=== PATIENT | female | born 1945 | race Caucasian/White ===

== ENCOUNTER 2016-11-12 15:08 | Inpatient (IN) | payer OTHER ==
[2016-11-12] VITALS (13 sets, daily range): BP systolic 88–154; BP diastolic 66–115
[~2016-11-12] VITALS: Ht 162.6 cm; Wt 61.7 kg
[~2016-11-12 15:08] MED LIST: ALEN70TA45 PO; ASPI81TA2 PO; ATOR20TA PO; BUDE10.2 IH; CARV6.252 PO; FURO-144 PO; GUAI600T PO; Ipratropium Bromide NEB; LEVA0.6320 IH; LEVO750T21 PO; LISI10TA5 PO; PANT40TA2 PO; PRED10TA PO; PRED20TA GT; PRED50TA PO; SERT100T PO
--- NOTE | 2016-11-12 15:08 | NUR ---
BIB [facility] 77 FROM HOME, WORSENING SOB SINCE THIS MORNING, ALBUTEROL HHN EN ROUTE. PT DYSPNEIC AT REST. RT AND MD AT BEDSIDE. PLACED ON MONITOR. GOWNED PT. PT HAS LAC #18 IV ACCESS OUTBOARD MOTOR MECHANIC.
[2016-11-12] MEDS ORDERED: ALBUTEROL FS 2.5 MG/3 ML VIAL.NEB ONE (15:09)
[2016-11-12] MEDS ORDERED: Magnesium 1GM/D5W 100ML PREMIX 200 ML IV ONE ×2 (15:10→15:19)
--- NOTE | 2016-11-12 15:15 | NUR ---
EKG IN PROGRESS
--- NOTE | 2016-11-12 15:15 | NUR ---
LHAND #20 IV ACCESS. BLOOD SAMPLE COLLECTED SENT TO LAB. PT HAS LAC #18 IV ACCESS FLOOR COVERING PRINTER
[2016-11-12] MEDS ORDERED: IV SET PRIMARY PUMP SET 1 EA INFUS.SET MC ONE ×2 (15:19→19:28)
--- NOTE | 2016-11-12 15:23 | NUR ---
CALLED NURSING MAKING LINE WORKER FOR ICU BED
[2016-11-12] MEDS ORDERED: methylPREDNISolone SOD SUCC 125 MG/2ML VIAL ONE (15:24)
[2016-11-12] MEDS ORDERED: IV NS 0.9% 500 ML IV ONE (15:30)
[2016-11-12] MEDS ORDERED: methylPREDNISolone SOD SUCC 125 MG/2ML VIAL IV ONE (15:30)
[2016-11-12] MEDS ORDERED: ALBUTEROL FS 2.5 MG/3 ML VIAL.NEB CONTNEB ONE (15:30)
[2016-11-12] MEDS ORDERED: IPRATROPIUM NEB FS 0.5 MG/2.5 ML AMPUL.NEB NEB ONE (15:30)
--- NOTE | 2016-11-12 15:39 | NUR ---
DIESEL FLEET MECHANIC AT BEDSIDE
[2016-11-12 15:40] LABS: BASOPHILS % (AUTO) 0.2 % (0.0-2.0); EOSINOPHILS # (AUTO) 0.1 /CMM (0.0-0.7); EOSINOPHILS % (AUTO) 0.8 % (0.0-6.0); HEMATOCRIT 43 % (33-45); HEMOGLOBIN 14.5 g/dL (11.5-14.8); LYMPHOCYTES # (AUTO) 0.9 /CMM (0.8-4.8); LYMPHOCYTES % (AUTO) 6.6 % (20.0-44.0); MEAN CORPUSCULAR HEMOGLOBIN 29 PG (26.0-33.0); MEAN CORPUSCULAR HGB CONC 34 g/dl (31.0-36.0); MEAN CORPUSCULAR VOLUME 86 fL (82-100); MONOCYTES # (AUTO) 0.5 /CMM (0.1-1.30); MONOCYTES % (AUTO) 3.8 % (2.0-12.0); NEUTROPHILS # (AUTO) 11.6 /CMM (1.8-8.9); NEUTROPHILS % (AUTO) 88.6 % (43.0-81.0); PLATELET COUNT (AUTO) 228 /CMM (150-450); RDW COEFFICIENT OF VARIATION 13.9 (11.5-15.0); WHITE BLOOD COUNT (AUTO) 13.1 K/uL (4.3-11.0)
[2016-11-12 15:48] LABS: CALCIUM, SERUM 9.2 mg/dL (8.5-10.1); CREATININE 0.6 mg/dL (0.6-1.3); POTASSIUM 4.3 mmol/L (3.5-5.1)
[2016-11-12 15:55] LABS: TROPONIN I 0.022 ng/mL (0.00-0.056)
--- NOTE | 2016-11-12 15:55 | NUR ---
BIPAP SETING 15 IPAP 5 EPAP FIO2 40% RATE 12
[2016-11-12 16:03] LABS: ALBUMIN 3.5 g/dL (3.4-5.0); BILIRUBIN,DIRECT 0.1 mg/dL (0.0-0.2); BILIRUBIN,TOTAL 0.3 mg/dL (0.2-1.0); TOTAL PROTEIN, SERUM 7.3 g/dL (6.4-8.2)
[2016-11-12 16:07] LABS: ABG BASE EXCESS -1.7 mmol/L; ABG PCO2 46.8 mmHg (35.0-45.0); ABG PH 7.336 (7.350-7.450); ABG PO2 59.6 mmHg (75.0-100.0); AaDO2 171.8 mmHg; COHb 1.3 % (0.5-1.5); MetHb 0.6 % (0.0-1.5); O2Hb 87.3 % (94.0-97.0); SITE, ABG Left Radial; VENT MODE, BG ST 15/5 RR12 40%
--- NOTE | 2016-11-12 16:15 | NUR ---
ICU 258
[2016-11-12] MEDS ORDERED: FUROSEMIDE 40 MG/4 ML VIAL IV ONE (16:30)
[2016-11-12] MEDS ORDERED: ASPIRIN 325 MG TABLET PO ONE (17:00)
[2016-11-12] MEDS ORDERED: FUROSEMIDE 40 MG/4 ML VIAL ONE (17:08)
[2016-11-12] MEDS ORDERED: ASPIRIN 325 MG TABLET ONE (17:08)
--- NOTE | 2016-11-12 17:24 | NUR ---
GAVE REPORT TO KAYLA LPN HOME [facility] DX RESP FAILURE DR HERNADEZ ADMITTING. TRANSFER VIA ACLS PROTOCOL.
--- NOTE | 2016-11-12 17:30 | NUR ---
ICU/RN: INITIAL NOTES,AM RECEIVED PT FROM ER VIA GURNEY, PT ALERT, AWAKE, FOLLOWING COMMANDS. ABLE TO AMBULATE FROM GURNEY TO BED. PT PLACED ON BIPAP WITH ORDERED SETTINGS PER MD. SOB NOTED, HOWEVER, MAINTAINING 02 SAT >92%. PT ON TELE, SINUS TACHYCARDIA. PT CONTINENT, ABLE TO USE BEDPAN. PIV PATENT AND INTACT, NO S/S OF INFECTION OR INFILTRATION NOTED. ALL NEEDS WILL BE MET, SAFETY MEASURES TAKEN, BED IN LOW POSITION, SIDE RAILS UP, CALL LIGHT WITHIN REACH.
[2016-11-12] MEDS ORDERED: MAGNESIUM HYDROXIDE 30 ML UDC PO PRN (18:00)
[2016-11-12] MEDS ORDERED: ACETAMINOPHEN 325 MG TABLET PO PRN (18:00)
[2016-11-12] MEDS ORDERED: ONDANSETRON HCL/PF 4 MG/2 ML VIAL IVP PRN (18:00)
[2016-11-12] MEDS ORDERED: MAG HYDROX/AL HYDROX/SIMETH 30 ML UDC PO PRN (18:00)
[2016-11-12] MEDS ORDERED: Z GUARD REMEDY 2 OZ OINT TP PRN (18:00)
[2016-11-12] MEDS ORDERED: IPRATROPIUM NEB FS 0.5 MG/2.5 ML AMPUL.NEB NEB PRN (18:00)
[2016-11-12] MEDS ORDERED: MORPHINE SULFATE INJ 2 MG/ML DISP.SYRIN IV PRN (18:00)
[2016-11-12] MEDS ORDERED: ALBUTEROL FS 2.5 MG/0.5 ML VIAL.NEB NEB PRN (18:00)
[2016-11-12] MEDS ORDERED: HYDROCODONE/APAP 5/325MG 1 EACH TABLET PO PRN (18:00)
--- NOTE | 2016-11-12 18:16 | NUR ---
ICU/RN: PT REFUSING BIPAP, PLACED ON NASAL CANULA 2 LITERS, TOLERATING WELL, MAINTAINING 02 SAT >92%
--- NOTE | 2016-11-12 18:37 | NUR ---
ICU/RN: PT PLACED ON BIPAP AGAIN, SETTINGS ORDERED BY MD, TOLERATING WELL, WILL CONTINUE TO MONITOR
[2016-11-12] MEDS: LEVOFLOXACIN 500 MG /D5W 100ML 500 MG in PREMIX 1 EA IV SCH (19:32)
[2016-11-12] MEDS: ALBUTEROL FS 2.5 MG/0.5 ML VIAL.NEB NEB SCH (20:18)
[2016-11-12] MEDS: IPRATROPIUM NEB FS 0.5 MG/2.5 ML AMPUL.NEB NEB SCH (20:18)
--- NOTE | 2016-11-12 21:00 | NUR ---
ICU/TRADE CLERK SPOKE WITH ARLIN FRANCISCO [phone]. SHE WOULD LIKE TO SPEAK WITH PRIMARY MD. AND WOULD LIKE PT PLACED IN A SNF/REHAB WHEN DISCHARGED. WILL ENDORSE TO AM SHIFT.
[2016-11-12] MEDS: ATORVASTATIN 10 MG TABLET PO SCH (21:27)
[2016-11-12] MEDS: ENOXAPARIN SODIUM 40 MG/0.4 ML DISP.SYRIN SQ SCH (21:27)
[2016-11-13] VITALS (41 sets, daily range): BP systolic 87–140; BP diastolic 51–99
[2016-11-13] MEDS: IPRATROPIUM NEB FS 0.5 MG/2.5 ML AMPUL.NEB NEB SCH ×6 (02:01→23:56)
[2016-11-13] MEDS: ALBUTEROL FS 2.5 MG/0.5 ML VIAL.NEB NEB SCH ×6 (02:01→23:56)
[2016-11-13 05:20] LABS: EOSINOPHILS % (AUTO) 0.1 % (0.0-6.0); HEMATOCRIT 43 % (33-45); HEMOGLOBIN 14.1 g/dL (11.5-14.8); LYMPHOCYTES # (AUTO) 0.4 /CMM (0.8-4.8); LYMPHOCYTES % (AUTO) 4.8 % (20.0-44.0); MEAN CORPUSCULAR HEMOGLOBIN 29 PG (26.0-33.0); MEAN CORPUSCULAR HGB CONC 33 g/dl (31.0-36.0); MEAN CORPUSCULAR VOLUME 87 fL (82-100); MONOCYTES # (AUTO) 0.4 /CMM (0.1-1.30); MONOCYTES % (AUTO) 4.9 % (2.0-12.0); NEUTROPHILS # (AUTO) 6.8 /CMM (1.8-8.9); NEUTROPHILS % (AUTO) 90.2 % (43.0-81.0); PLATELET COUNT (AUTO) 231 /CMM (150-450); RDW COEFFICIENT OF VARIATION 14.6 (11.5-15.0); RED BLOOD CELL COUNT(AUTO) 4.91 MIL/uL (4.0-5.2); WHITE BLOOD COUNT (AUTO) 7.6 K/uL (4.3-11.0)
[2016-11-13 05:34] LABS: ALBUMIN 3.1 g/dL (3.4-5.0); BILIRUBIN,TOTAL 0.3 mg/dL (0.2-1.0); CALCIUM, SERUM 8.9 mg/dL (8.5-10.1); CREATININE 0.6 mg/dL (0.6-1.3); MAGNESIUM 2.3 mg/dL (1.8-2.4); PHOSPHORUS 4.3 mg/dL (2.5-4.9); POTASSIUM 4.7 mmol/L (3.5-5.1); TOTAL PROTEIN, SERUM 7.1 g/dL (6.4-8.2)
--- NOTE | 2016-11-13 07:51 | NUR ---
ICU/RN INITIAL NOTES,AM RECEIVED PATIENT ALERT, AWAKE, FOLLOWS COMMANDS. BIPAP REMOVED AND PT PLACED ON NASAL CANULA 3LITERS, TOLERATING WELL, MAINTAINING O2 SAT >90%. PT ON TELE, SINUS. PT SEEN BY DR. HERNADEZ, ORDERS FOR DIET RECEIVED. PT CONTINENT, ABLE TO USE BEDPAN. ABG PENDING PER MD. PIV'S PATENT AND INTACT, NO S/S OF INFECTION OR INFILTRATION NOTED. ALL SAFETY MEASURES TAKEN, BE IN LOW POSITION, SIDE RAILS UP, CALL LIGHT WITHIN REACH. WILL CONTINUE CARE
[2016-11-13] MEDS: methylPREDNISolone SOD SUCC 125 MG/2ML VIAL IV SCH ×2 (08:08→17:25)
[2016-11-13] MEDS: ASPIRIN 81 MG TAB.CHEW PO SCH (08:08)
[2016-11-13] MEDS: PANTOPRAZOLE 40 MG TABLET.DR PO SCH (08:09)
[2016-11-13] MEDS: SERTRALINE HCL 50 MG TABLET PO SCH (08:09)
[2016-11-13] MEDS ORDERED: FUROSEMIDE 40 MG/4 ML VIAL IV SCH (09:00)
[2016-11-13] MEDS: FUROSEMIDE 40 MG/4 ML VIAL IV SCH (09:00)
[2016-11-13] MEDS ORDERED: CARVEDILOL 6.25 MG TABLET PO SCH ×2 (09:00)
[2016-11-13] MEDS: LISINOPRIL (10MG) 10 MG TABLET PO SCH (09:00)
[2016-11-13] MEDS ORDERED: ALBUTEROL FS 2.5 MG/0.5 ML VIAL.NEB NEB PRN (11:30)
--- NOTE | 2016-11-13 11:51 | NUR ---
Social service consult requested by Dr. Hutton per patient's sister request. Per H&P report by Dr. Hutton, patient is a 70-year old female with a PHMx of COPD, CHF, hypertension, and HLD. Patient's sister requested to speak to due to concern over patient's well-being. Patient was admitted to [facility] for acute respiratory failure. Patient' sister, Queenie, stated that patient does not comply with medications. She reported that the patient often forgets. Hence, patient's sister requested caregiver information so that one could be hired for the patient upon discharge. will provide patient's sister with caregiver information/resources as requested.
[2016-11-13] MEDS: LORAZEPAM 0.5 MG TABLET PO PRN (18:48)
[2016-11-13] MEDS: NICOTINE PATCH (21MG) 21 MG PATCH.TD24 TD SCH (18:48)
--- NOTE | 2016-11-13 18:51 | NUR ---
ICU/RN ENDING NOTES, AM REPORT WILL BE ENDORSED TO NIGHT NURSE FOR CONTINUATION OF CARE. PT ON NASAL CANULA, BIPAP ON STANDBY NEEDED. PT NOT IN ACUTE DISTRESS, MAINTAINING 02 SAT >90%. PT SINUS ON TELE. PIV PATENT AND INTACT. NO S/S OF INFECTION OR INFILTRATION NOTED. PER DR. HERNADEZ PRN ATIVAN GIVEN AND NICODERM PATCH APPLIED. ALL MEEDS MET, SAFETY MEASURES TAKEN, BED IN LOW POSITION, SIDE RAILS UP, CALL LIGHT WITHIN REACH. DAUGHTER AT BEDSIDE
--- NOTE | 2016-11-13 20:00 | NUR ---
ICU/RN- RECEIVED PT IN BED A/OX4, ON MONITOR W/ TACHYCARDIA W/ HR 100'S. ON O2 4L/MIN VIA NC W/ O2 SAT 96%. NOTED BREATHING LABORED. INSTRUCTED PT TO USE BIPAP AT THIS TIME. PT DENIES SOB AND STATES THAT SHE WILL CALL WHEN SHE NEEDS TO BE PLACED ON BIPAP. WILL MONITOR CLOSELY. PT ON HIGH FOWLERS. CALL LIGHT W/ IN REACH. BED LOW AND IN LOCKED POSITION. WILL MONITOR PT ACCORDINGLY.
[2016-11-13] MEDS: LEVOFLOXACIN 500 MG /D5W 100ML 500 MG in PREMIX 1 EA IV SCH (20:50)
[2016-11-13] MEDS: ENOXAPARIN SODIUM 40 MG/0.4 ML DISP.SYRIN SQ SCH (20:51)
[2016-11-13] MEDS: ATORVASTATIN 10 MG TABLET PO SCH (21:06)
[2016-11-13] MEDS: ZOLPIDEM TARTRATE 5 MG TABLET PO PRN (22:57)
[2016-11-14] VITALS (44 sets, daily range): BP systolic 96–167; BP diastolic 55–142
[2016-11-14] MEDS: ALBUTEROL FS 2.5 MG/0.5 ML VIAL.NEB NEB SCH ×6 (02:58→23:00)
[2016-11-14] MEDS: IPRATROPIUM NEB FS 0.5 MG/2.5 ML AMPUL.NEB NEB SCH ×6 (02:58→23:00)
[2016-11-14 05:14] LABS: EOSINOPHILS # (AUTO) 0.1 /CMM (0.0-0.7); EOSINOPHILS % (AUTO) 0.5 % (0.0-6.0); HEMATOCRIT 42 % (33-45); HEMOGLOBIN 13.9 g/dL (11.5-14.8); LYMPHOCYTES # (AUTO) 0.4 /CMM (0.8-4.8); LYMPHOCYTES % (AUTO) 3.2 % (20.0-44.0); MEAN CORPUSCULAR HEMOGLOBIN 29 PG (26.0-33.0); MEAN CORPUSCULAR HGB CONC 33 g/dl (31.0-36.0); MEAN CORPUSCULAR VOLUME 87 fL (82-100); MONOCYTES # (AUTO) 0.6 /CMM (0.1-1.30); MONOCYTES % (AUTO) 5.4 % (2.0-12.0); NEUTROPHILS # (AUTO) 10.2 /CMM (1.8-8.9); NEUTROPHILS % (AUTO) 90.9 % (43.0-81.0); PLATELET COUNT (AUTO) 244 /CMM (150-450); RDW COEFFICIENT OF VARIATION 14.8 (11.5-15.0); RED BLOOD CELL COUNT(AUTO) 4.86 MIL/uL (4.0-5.2); WHITE BLOOD COUNT (AUTO) 11.3 K/uL (4.3-11.0)
[2016-11-14 05:38] LABS: CALCIUM, SERUM 9.1 mg/dL (8.5-10.1); CREATININE 0.9 mg/dL (0.6-1.3); POTASSIUM 5.4 mmol/L (3.5-5.1)
--- NOTE | 2016-11-14 07:41 | NUR ---
INITIAL HEALTH SANITARIAN NOTE RCVD PT AWAKE AND ALERT SHOWING NO S/O DISTRESS OR C/O PAIN VERBALIZED AT THIS TIME. ST ON TELE. TOLERATING O2 VIA NC. VOIDING TO BEDPAN. IV SITES C/D/I/PATENT. NO S/O INFILTRATION OR PHLEBITIS OBSERVED. WILL CONTINUE TO MONITOR FOR SAFETY AND COMFORT. CALL LIGHT WITHIN REACH. BED IN LOW AND LOCKED POSITION.
[2016-11-14] MEDS: PANTOPRAZOLE 40 MG TABLET.DR PO SCH (07:57)
[2016-11-14] MEDS: methylPREDNISolone SOD SUCC 125 MG/2ML VIAL IV SCH (08:00)
[2016-11-14] MEDS: LISINOPRIL (10MG) 10 MG TABLET PO SCH (08:01)
[2016-11-14] MEDS: SERTRALINE HCL 50 MG TABLET PO SCH (08:01)
[2016-11-14] MEDS: NICOTINE PATCH (21MG) 21 MG PATCH.TD24 TD SCH (08:01)
[2016-11-14] MEDS: ASPIRIN 81 MG TAB.CHEW PO SCH (08:01)
[2016-11-14] MEDS: FUROSEMIDE 40 MG/4 ML VIAL IV SCH (08:01)
[2016-11-14] MEDS: LORAZEPAM 0.5 MG TABLET PO PRN (08:54)
[2016-11-14] MEDS: BISOPROLOL FUMARATE 5 MG TABLET PO SCH (11:11)
[2016-11-14] MEDS ORDERED: LORAZEPAM 0.5 MG TABLET PO PRN (12:00)
--- NOTE | 2016-11-14 13:11 | NUR ---
HOTEL OFFICE MANAGER NOTE PT ENCOURAGED TO SIT ON THE CHAIR TO PROMOTE BETTER BREATHING. PT APPEARS MORE CALM, AND STATES TO BREATHE BETTER. WILL CONTINUE TO MONITOR.
--- NOTE | 2016-11-14 18:21 | NUR ---
TURNING MACHINE OPERATOR NOTE PT AWAKE AND ALERT SHOWING NO S/O DISTRESS OR C/O PAIN AT THIS TIME. SR ON TELE. PT CONTINUES TO BE CALM, BREATHING EVEN AND NON-LABORED. SITTING ON CHAIR. IV SITES C/D/I/PATENT. NO S/O INFILTRATION OR PHLEBITIS OBSERVED. PT'S CARE WILL BE ENDORSED TO [employer]ORER RN FOR CONTINUITY OF CARE. CALL LIGHT WITHIN REACH.
--- NOTE | 2016-11-14 19:30 | NUR ---
Received patient A/O X 4 sitting on bedside chair no apparent distress noted.VS stable. Respiration even and unlabored.O2 6L NC in progress.Saturation 97%.SR per monitor no ectopies noted.Denies pain or any discomfort.Plan of care discussed with patient and verbalized understanding.Safety measures maintained with call light at bedside.
--- NOTE | 2016-11-14 19:50 | NUR ---
PRAMOD from [facility] called to inquire if patient for discharge to SNF today. Made aware no discharge noted from MD's order.
[2016-11-14] MEDS: LEVOFLOXACIN 500 MG /D5W 100ML 500 MG in PREMIX 1 EA IV SCH (20:16)
[2016-11-14] MEDS: ENOXAPARIN SODIUM 40 MG/0.4 ML DISP.SYRIN SQ SCH (21:05)
[2016-11-14] MEDS: ATORVASTATIN 10 MG TABLET PO SCH (21:26)
[2016-11-14] MEDS: ZOLPIDEM TARTRATE 5 MG TABLET PO PRN (21:58)
--- NOTE | 2016-11-14 22:00 | NUR ---
Medicated for sleep as requested.Safety measures maintained.Call light at bedside.
[2016-11-15] VITALS (20 sets, daily range): BP systolic 84–125; BP diastolic 46–89
--- NOTE | 2016-11-15 | NUR ---
Patient resting.VS stable.No distress noted.Patient independent with bed mobility.
[2016-11-15] MEDS: ALBUTEROL FS 2.5 MG/0.5 ML VIAL.NEB NEB SCH ×6 (03:30→23:21)
[2016-11-15] MEDS: IPRATROPIUM NEB FS 0.5 MG/2.5 ML AMPUL.NEB NEB SCH ×6 (03:30→23:21)
--- NOTE | 2016-11-15 04:00 | NUR ---
Patient resting.VS stable.AM care done.Denies any discomfort.
[2016-11-15 05:11] LABS: CALCIUM, SERUM 8.8 mg/dL (8.5-10.1); CREATININE 0.6 mg/dL (0.6-1.3); POTASSIUM 4.6 mmol/L (3.5-5.1)
[2016-11-15 05:13] LABS: BASOPHILS % (AUTO) 0.2 % (0.0-2.0); EOSINOPHILS % (AUTO) 0.4 % (0.0-6.0); HEMATOCRIT 43 % (33-45); HEMOGLOBIN 14.1 g/dL (11.5-14.8); LYMPHOCYTES # (AUTO) 1.2 /CMM (0.8-4.8); LYMPHOCYTES % (AUTO) 11.2 % (20.0-44.0); MEAN CORPUSCULAR HEMOGLOBIN 29 PG (26.0-33.0); MEAN CORPUSCULAR HGB CONC 33 g/dl (31.0-36.0); MEAN CORPUSCULAR VOLUME 87 fL (82-100); MONOCYTES % (AUTO) 8.8 % (2.0-12.0); NEUTROPHILS # (AUTO) 8.8 /CMM (1.8-8.9); NEUTROPHILS % (AUTO) 79.4 % (43.0-81.0); PLATELET COUNT (AUTO) 229 /CMM (150-450); RDW COEFFICIENT OF VARIATION 14.7 (11.5-15.0); RED BLOOD CELL COUNT(AUTO) 4.93 MIL/uL (4.0-5.2); WHITE BLOOD COUNT (AUTO) 11.1 K/uL (4.3-11.0)
--- NOTE | 2016-11-15 06:50 | NUR ---
Patient slept most of the night after sleeping pill.VS stable.No significant change noted during the shift. Denies pain or any discomfort.Voiding per bedpan.Kept clean and dry.
--- NOTE | 2016-11-15 07:15 | NUR ---
RN INITIAL NOTES RECEIVED PT AWAKE, A/OX4. ON 02 AT 6LPM VIA NC. NO RESPIRATORY DISTRESS NOTED. NO SOB NOTED. DENIES ANY PAIN. HOB ELEVATED. IV LINES IN PLACE. FLUSHED WITH NS. PT COMFORTABLE. CLEAN AND DRY. WILL MONITOR.
[2016-11-15] MEDS: BISOPROLOL FUMARATE 5 MG TABLET PO SCH (08:11)
[2016-11-15] MEDS: NICOTINE PATCH (21MG) 21 MG PATCH.TD24 TD SCH (08:11)
[2016-11-15] MEDS: methylPREDNISolone SOD SUCC 125 MG/2ML VIAL IV SCH (08:11)
[2016-11-15] MEDS: ASPIRIN 81 MG TAB.CHEW PO SCH (08:11)
[2016-11-15] MEDS: LISINOPRIL (10MG) 10 MG TABLET PO SCH (08:11)
[2016-11-15] MEDS: SERTRALINE HCL 50 MG TABLET PO SCH (08:12)
[2016-11-15] MEDS: PANTOPRAZOLE 40 MG TABLET.DR PO SCH (08:20)
--- NOTE | 2016-11-15 16:35 | NUR ---
RN NOTES PT TRANSFERRED TO ROOM 320-2. CYNDI RN TOOK OVER PT'S CARE. REPORT GIVEN AT BEDSIDE. PT REMAINS A/OX4. NO RESPIRATORY DISTRESS NOTED. NO SOB NOTED. DENIES ANY PAIN. TRANSFERRED IN STABLE CONDITION.
--- NOTE | 2016-11-15 16:59 | NUR ---
TELE/RN NOTES PATIENT TRANSFERRED FROM ICU ADMITTING DX OF COPD EXACERBATION, PAST MEDICAL HISTORY OF COPD, HTN, HLP, RIGHT MASTECTOMY, DEPRESSION, EMPHYSEMA. NO KNOWN ALLERGIES. CURRENTLY SMOKES 5-6 CIGARETTES A DAY. PATIENT ALERT AND ORIENTED X4, VERBALLY RESPONSIVE. APPEARS CALM AND COMFORTABLE, NO S/S OF DISTRESS/DISCOMFORT NOTED. DENIES PAIN AT THIS TIME. BREATHING EVEN AND UNLAOBRED, ON 02 AT 6LP VIA NC CONNECTED TO COOL AEROSOL SATURATION OF 99%. PATIENT CONTINENT, USES BEDPAN. IV TO LEFT HAND AND LEFT AC HEP LOCK. LABS FOR AM. PATIENT MONITORED CLOSELY AND ACCORDINGLY.
--- NOTE | 2016-11-15 18:27 | NUR ---
TELE/RN NOTES PATIENT MAINTAINS STABLE. NO SIGNIFICANT CHANGES NOTED. RESPIRATIONS EVEN AND UNLABORED, DENIES PAIN OR DISCOMFORT. ALL NEEDS MET AND ATTENDED. PER TELE MONITOR SINUS RHYTHM. SAFETY PRECAUTIONS INITIATED. WILL ENDORSE CARE TO HALF SOLE FITTER FOR JOHN.
[2016-11-15] MEDS ORDERED: IV SET PRIMARY PUMP SET 1 EA INFUS.SET MC ONE (20:44)
[2016-11-15] MEDS ORDERED: SECONDARY IV SET 1 EA INFUS.SET MC ONE (20:44)
[2016-11-15] MEDS ORDERED: IV NS 0.9% 250 ML IV ONE (20:45)
[2016-11-15] MEDS: LEVOFLOXACIN 500 MG /D5W 100ML 500 MG in PREMIX 1 EA IV SCH (20:59)
[2016-11-15] MEDS: ENOXAPARIN SODIUM 40 MG/0.4 ML DISP.SYRIN SQ SCH (21:01)
[2016-11-15] MEDS: ATORVASTATIN 10 MG TABLET PO SCH (21:01)
--- NOTE | 2016-11-15 21:26 | NUR ---
MSN NOTES RECEIVED PT IN ROOM. AWAKE. RESPIRATION EVEN AND UNLABORED. NO SOB. NO COMPLAIN OF PAIN/DISCOMFORT. FREE FROM FALLS AND INJURY. IV ON LEFT HAND #20 PATENT AND INTACT. NO REDNESS INFILTRATION NOTED. FLUSHING WELL. NO ACUTE DISTRESS NOTED. ALL NEEDS ATTENDED AND ANTICIPATED. WILL CONTINUE TO MONITOR FOR SAFETY.
[2016-11-15] MEDS: ZOLPIDEM TARTRATE 5 MG TABLET PO PRN (22:22)
[2016-11-16] MEDS: IPRATROPIUM NEB FS 0.5 MG/2.5 ML AMPUL.NEB NEB SCH ×3 (03:28→11:42)
[2016-11-16] MEDS: ALBUTEROL FS 2.5 MG/0.5 ML VIAL.NEB NEB SCH ×3 (03:28→11:42)
--- NOTE | 2016-11-16 06:18 | NUR ---
MSN NOTES PT IN ROOM. AWAKE. RESPIRATION EVEN AND UNLABORED. NO SOB. NO COMPLAIN OF PAIN/DISCOMFORT. FREE FROM FALLS AND INJURY. IV ON LEFT HAND #20 PATENT AND INTACT. NO REDNESS INFILTRATION NOTED. FLUSHING WELL. NO ACUTE DISTRESS NOTED. ALL NEEDS ATTENDED AND ANTICIPATED. WILL ENDORSE TO NEXT SHIFT NURSE FOR CONTINUITY OF CARE,
[2016-11-16 06:49] LABS: BASOPHILS % (AUTO) 0.2 % (0.0-2.0); EOSINOPHILS % (AUTO) 0.5 % (0.0-6.0); HEMATOCRIT 40 % (33-45); HEMOGLOBIN 13.3 g/dL (11.5-14.8); LYMPHOCYTES # (AUTO) 1.5 /CMM (0.8-4.8); LYMPHOCYTES % (AUTO) 16.5 % (20.0-44.0); MEAN CORPUSCULAR HEMOGLOBIN 29 PG (26.0-33.0); MEAN CORPUSCULAR HGB CONC 33 g/dl (31.0-36.0); MEAN CORPUSCULAR VOLUME 87 fL (82-100); MONOCYTES # (AUTO) 0.7 /CMM (0.1-1.30); MONOCYTES % (AUTO) 8.1 % (2.0-12.0); NEUTROPHILS # (AUTO) 6.8 /CMM (1.8-8.9); NEUTROPHILS % (AUTO) 74.7 % (43.0-81.0); PLATELET COUNT (AUTO) 224 /CMM (150-450); RDW COEFFICIENT OF VARIATION 14.4 (11.5-15.0); RED BLOOD CELL COUNT(AUTO) 4.59 MIL/uL (4.0-5.2); WHITE BLOOD COUNT (AUTO) 9.1 K/uL (4.3-11.0)
[2016-11-16 06:57] VITALS: BP 102/65
[2016-11-16 07:15] LABS: CALCIUM, SERUM 8.8 mg/dL (8.5-10.1); CREATININE 0.7 mg/dL (0.6-1.3); POTASSIUM 4.7 mmol/L (3.5-5.1)
[2016-11-16 08:00] VITALS: BP 101/68
--- NOTE | 2016-11-16 08:00 | NUR ---
AM RN NOTES RECEIVED PT IN STABLE CONDITION, SLEEPING IN BED, EASY TO AROUSE, NO SOB OR DISTRESS NOTED, NO PAIN OR DISCOMFORT, WILL MONITOR.
[2016-11-16] MEDS: NICOTINE PATCH (21MG) 21 MG PATCH.TD24 TD SCH (08:09)
[2016-11-16] MEDS: ASPIRIN 81 MG TAB.CHEW PO SCH (08:10)
[2016-11-16] MEDS: SERTRALINE HCL 50 MG TABLET PO SCH (08:10)
[2016-11-16] MEDS: LISINOPRIL (10MG) 10 MG TABLET PO SCH (08:10)
[2016-11-16] MEDS: methylPREDNISolone SOD SUCC 125 MG/2ML VIAL IV SCH (08:10)
[2016-11-16 08:11] VITALS: BP 101/68
[2016-11-16] MEDS: BISOPROLOL FUMARATE 5 MG TABLET PO SCH (08:11)
[2016-11-16] MEDS: PANTOPRAZOLE 40 MG TABLET.DR PO SCH (08:12)
--- NOTE | 2016-11-16 14:42 | NUR ---
PT DISCHARGED TO "[facility]" SNF IN STABLE CONDITION, NO SOB OR DISTRESS NOTED, NO PAIN OR DISCOMFORT, TRANSPORTED VIA AMBULANCE VIA GURNEY, ALL BELONGINGS TAKEN, EDUCATION DONE, REPORT GIVEN TO MELVINA GABRIEL AT SNF AND EMT STAFF, PT LEFT FLOOR SAFELY.
== END 2016-11-16 14:35 | DRG 189 ==
LOC: ER 15:13 → ICU 17:15 → TELE 11-15 16:29 → MED 11-16 10:08
PROVIDERS: ADMIT Family Medicine; ATTEND Family Medicine
PROC: 5A09357 Assistance with Respiratory Ventilation, Less than 24 Consecutive Hours, Continuous Positive Airway Pressure (ICD-10-PCS; principal; 2016-11-12)
DX: J96.01 Acute respiratory failure with hypoxia (principal); J44.1 Chronic obstructive pulmonary disease with (acute) exacerbation; I42.9 Cardiomyopathy, unspecified; I50.22 Chronic systolic (congestive) heart failure; F17.210 Nicotine dependence, cigarettes, uncomplicated; I11.0 Hypertensive heart disease with heart failure; D72.829 Elevated white blood cell count, unspecified; E78.5 Hyperlipidemia, unspecified; F32.9 Major depressive disorder, single episode, unspecified; F41.9 Anxiety disorder, unspecified; J96.02 Acute respiratory failure with hypercapnia; Z82.49 Family history of ischemic heart disease and other diseases of the circulatory system; Z79.899 Other long term (current) drug therapy
CPT/HCPCS: 36415; 36600; 71010-TC; 80048-TC; 80053-TC; 80076-TC; 83735-TC; 83880; 84100-TC; 84484-TC; 85025-TC; 87081-TC; 93307-TC; 94799-TC; A4216; A4606; J1650; J1940; J1956; J2930; J3475; J7050; Z7610